=== PATIENT | female | born 1970 | race Caucasian/White ===

== ENCOUNTER → 2023-06-09 12:13 | Outpatient (BNVA) | payer SELFPAY | PROVIDERS: Visit Provider Emergency Medicine | DX: S92.211A Displaced fracture of cuboid bone of right foot, initial encounter for closed fracture (principal); W10.9XXA Fall (on) (from) unspecified stairs and steps, initial encounter | CPT/HCPCS: 73610; 73630 ==

== ENCOUNTER → 2023-07-24 12:59 | Outpatient (BNVA) | payer SELFPAY | PROVIDERS: Visit Provider Podiatrist Foot & Ankle Surgery | DX: S92.214D Nondisplaced fracture of cuboid bone of right foot, subsequent encounter for fracture with routine healing; S82.51XD Displaced fracture of medial malleolus of right tibia, subsequent encounter for closed fracture with routine healing; S82.831D Other fracture of upper and lower end of right fibula, subsequent encounter for closed fracture with routine healing; S92.034D Nondisplaced avulsion fracture of tuberosity of right calcaneus, subsequent encounter for fracture with routine healing; S92.251D Displaced fracture of navicular [scaphoid] of right foot, subsequent encounter for fracture with routine healing; X58.XXXD Exposure to other specified factors, subsequent encounter | CPT/HCPCS: 73630 ==

== ENCOUNTER → 2023-09-10 14:21 | Outpatient (BNVA) | payer SELFPAY | PROVIDERS: Visit Provider Podiatrist Foot & Ankle Surgery | DX: S92.214D Nondisplaced fracture of cuboid bone of right foot, subsequent encounter for fracture with routine healing; S82.51XD Displaced fracture of medial malleolus of right tibia, subsequent encounter for closed fracture with routine healing; S92.251D Displaced fracture of navicular [scaphoid] of right foot, subsequent encounter for fracture with routine healing; S82.831D Other fracture of upper and lower end of right fibula, subsequent encounter for closed fracture with routine healing; S92.034D Nondisplaced avulsion fracture of tuberosity of right calcaneus, subsequent encounter for fracture with routine healing; X58.XXXD Exposure to other specified factors, subsequent encounter | CPT/HCPCS: 73630 ==